=== PATIENT | female | born 2000 | race Caucasian/White ===

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

== ENCOUNTER 2019-01-25 23:27 | Emergency (ER) | payer SELFPAY ==
[~2019-01-25] VITALS: Ht 152.4 cm; Wt 68.5 kg
[~2019-01-25 23:27] MED LIST: ACET325T33 PO; ONDA4TAB14 PO
[2019-01-25 23:58] VITALS: BP 124/78; PULSE 82; RESP 18; Ht 152.4 cm; Wt 68.5 kg
--- NOTE | 2019-01-26 01:51 | ERD ---
ER Documentation Chief Complaint Chief Complaint LRQ AP and diarrhea X 1 day HPI This is a 18-year-old female who was accompanied by mother here to emerge department complaints of pelvic pain after eating corn dog. Vomited once with nonbilious nonbloody emesis. Had a diarrhea/watery stools x1 today. Her last bowel movement was yesterday and was normal. LMP: Last week. G0, . Denies headache, head injury, loss of consciousness, dizziness, neck pain, neck stiffness, throat pain, difficulty swallowing, difficulty breathing lying flat, shoulder pain, chest pain, back pain, abdominal pain, constipation, urinary symptoms, or possibility being , vaginal bleeding, loss of bowel and bladder control, trauma, injury, falls, difficulty walking due to pain, numbness or tingling sensation, calf pain, recent travel, recent major surgery in the last 3 weeks, calf pain, recent long travel, recent exposure to any illness, recent antibiotic use in the last 3 months, fever, chills, seizures. Past medical history: Denies. Surgical history: Denies. Social: Denies smoking, use of alcoholic beverages, use of illegal drugs. ROS All systems reviewed and are negative except as per history of present illness. Medications Home Meds Active Scripts Ondansetron Hcl* (Zofran*) 4 Mg Tablet, 4 MG PO Q8H PRN for NAUSEA AND/OR VOMITING, #30 TAB Prov:ASTON HAMPTON F 01/26/19 Ibuprofen* (Motrin*) 600 Mg Tab, 600 MG PO Q6H PRN for PAIN AND OR ELEVATED TEMP, #30 TAB Prov:ASTON HAMPTON F 01/26/19 Ondansetron (Ondansetron Odt) 4 Mg Tab.rapdis, 4 MG PO Q6H PRN for NAUSEA AND/OR VOMITING, #10 TAB Prov:OSMAR RODNEY PA-C 03/31/17 Acetaminophen* (Tylenol*) 325 Mg Tablet, 1 TAB PO Q6 PRN for PAIN AND OR ELEVATED TEMP, #20 TAB Prov:OSMAR RODNEY PA-C 03/31/17 Allergies Allergies: Coded Allergies: No Known Allergy (Verified , 07/05/14) PMhx/Soc History of Surgery: No Anesthesia Reaction: No Hx Neurological Disorder: No Hx Respiratory Disorders: No Hx Cardiac Disorders: No Hx Psychiatric Problems: No Hx Miscellaneous Medical Probl: No Hx Alcohol Use: No Hx Substance Use: No Hx Tobacco Use: No Physical Exam Vitals Vital Signs Date Temp Pulse Resp B/P (MAP) Pulse Ox O2 O2 Flow FiO2 Time Delivery Rate 01/25/19 99.1 82 18 124/78 98 23:58 (93) Physical Exam Const: No acute distress Head: Atraumatic Eyes: Normal Conjunctiva. Color appears normal for ethnicity. ENT: Normal External Ears, Nose and Mouth. Neck: Full range of motion. No meningismus. Resp: Clear to auscultation bilaterally Cardio: Regular rate and rhythm, no murmurs Abd: Soft, non tender, non distended. Normal bowel sounds. Negative Thompson sign. Negative Logan sign (heel jar test). Negative psoas sign. Negative Rovsing sign. Able to jump 10 times without developing lower abdominal pain. No CVA tenderness. Ambulatory with steady gait and without pain to abdomen. : Examined with female cattle sticker. Has suprapubic tenderness to palpation. Bilateral inguinal area has no swelling/discoloration/tenderness. Skin: No petechiae or rashes. Color appears normal for ethnicity. No skin tenting. No signs of severe dehydration. Back: No midline or flank tenderness Ext: No cyanosis, or edema Neur: Awake and alert. No neurological deficits. Psych: Normal Mood and Affect Results 24 hrs Laboratory Tests Test 01/26/19 01:58 01/26/19 02:04 Urine Color YELLOW Urine Clarity CLEAR Urine pH 5.0 Urine Specific [place] 1.021 Urine Ketones NEGATIVE mg/dL Urine Nitrite NEGATIVE mg/dL Urine Bilirubin NEGATIVE mg/dL Urine Urobilinogen NEGATIVE mg/dL Urine Leukocyte Esterase NEGATIVE Alex/ul Urine Microscopic RBC 1 /HPF Urine Microscopic WBC 2 /HPF Urine Hemoglobin 1+ mg/dL Urine Glucose NEGATIVE mg/dL Urine Total Protein NEGATIVE mg/dl POC Beta HCG, Qualitative NEGATIVE Procedures/MDM Diagnostic tests: POC urine : Negative. Urinalysis: Reviewed. Culture urine: Sent. Treatment: Patient refused. Re-evaluation: No episode of emesis in the emergency department. Denies chest pain, back pain, abdominal pain, pelvic pain. Negative Thompson sign. Negative Logan sign (heel jar test). Negative psoas sign. Negative Rovsing sign. Able to jump 10 times without developing lower abdominal pain. No CVA tenderness. Ambulatory with steady gait and without pain to abdomen. No skin tenting. No signs of severe dehydration. Stated that she feels much better at this time. Patient and family members stated that they are comfortable to go home. Differential diagnosis I have low suspicion for pancreatitis, cholecystitis, diverticulitis, bowel obstruction, appendicitis, ruptured appendicitis, pyelonephritis, nephrolithiasis, obstructing kidney stones, septic stone. Final diagnosis: Diarrhea. Food positioning. Prescription: Motrin. Zofran. Follow-up with PCP in the next 24-48 hours. Come back here in the emergency department for any new symptoms or any worsening symptoms. All questions and concerns were answered. Patient and family members verbalized understanding and agreed with plan of care. Hemodynamically stable on discharge. Departure Diagnosis: Primary Impression: Diarrhea Additional Impression: Food poisoning Condition: Stable Additional Instructions: Follow-up with PCP in the next 24-48 hours. Come back here in the emergency department for any new symptoms or any worsening symptoms. ASTON HAMPTON Jan 26, 2019 01:51
[2019-01-26] MEDS ORDERED: IBUP-1542 PO (02:51)
[2019-01-26] MEDS ORDERED: ONDA4TAB8 PO (02:51)
== END 2019-01-26 03:04 | disposition home or self-care (01) ==
LOC: FTE 23:27
DX: R19.7 Diarrhea, unspecified (principal); T62.94XA Toxic effect of unspecified noxious substance eaten as food, undetermined, initial encounter; R10.2 Pelvic and perineal pain
CPT/HCPCS: 81001; 81025; 87086; 99283